=== PATIENT | female | born 1970 | race Caucasian/White ===

== ENCOUNTER 2016-09-18 08:51 | Day surgery (SDC) | payer MEDICARE, MEDICAID ==
[~2016-09-18] VITALS: Ht 165.1 cm; Wt 90.7 kg
[~2016-09-18 08:51] MED LIST: ALBU8.5H2 INHALATION; ALPR2TAB6 PO; ASPI-973 PO; ATOR20TA PO; BECL8.7A5 INHALATION; CARV3.122 PO; DULO30C PO; ERGO2000 PO; FLUT16SP NS; HYDR-656 PO; INSU100C2 SQ; Lactated Ringer's 1,000 ML IV ONE
[2016-09-18] MEDS ORDERED: fentaNYL-PF 50 mCg/mL 2 mL Inj ONE (08:52)
[2016-09-18] MEDS ORDERED: Propofol 10,000 mCg/mL 20 mL Inj ONE (08:52)
[2016-09-18 09:08] VITALS: BP 104/72; PULSE 93; RESP 16; O2SAT 97
--- NOTE | 2016-09-18 10:44 | PCM.ENDEGD ---
EGD Date of Service: Sep 18, 2016 Physician Farrukh Thomason MD Pre Procedure Diagnosis: Abdominal pain diarrhea Post Procedure Dx & Findings: Gastritis Procedure Esophagogastroduodenoscopy PROCEDURE IN DETAIL: After proper sedation, Olympus video endoscope was inserted into patient's mouth and esophagus was successfully intubated. Scope introduced esophagus. Esophagus showed normal shiny whitish mucosa consistent with squamous cell component. Z line was intact at 40 cm from the incisors. Scope further advanced to the stomach. Stomach revealed atrophy streaks of redness edema consistent with gastritis in the antrum and part of the body. Biopsies obtained.. Cardia fundus body antrum pylorus were all visualized. Retroflexion was done. Stomach was easily inflated and deflatable using air. Scope further advanced to the distal duodenum. Duodenum revealed normal villous structures with normal appearing folds without any mass ulcer erosion. 5 biopsies obtained for workup of diarrhea. Impression Gastritis Recommendation Await biopsies Follow-up with GI Presedation Assessment Risks and Benefits Informed consent was obtained from the patient after all risks and benefits including but not limited to drug reaction, infection, pain, bleeding, perforation, as well as alternatives were discussed. Patient monitoring Continuous pulse oximetry, cardiac monitoring, blood pressure monitoring, IV access, and oxygen at 2L per nasal cannula. Complications There were no periprocedural complications identified. Post Procedure Plan Post Procedure Recommendations 1. Restrict activities today. 2. Resume normal activities in the morning. 3. Resume medications. 4. GERD behavioral modification: - Avoid fatty, acidic, spicy, large meals - Do not lie down after meals - Do not eat or drink anything for at least 2 1/2 hours before going to bed at night - Discontinue tobacco and alcohol - Decrease or avoid caffeine - Avoid chocolate and mints - Decrease weight - Avoid aspirin and non steroidal anti-inflammatory agents (NSAID) such as Aleve, Advil, Mobic, Naproxen, Ibuprofen, etc 5. Add proton pump inhibitor. Take 30 minutes before 1st meal of the day. 6. Patient informed of normal post procedure side effects as bloating, drowsiness, blood streaking in the stool 7. If gastric biopsy reveal H.pylori, continue with appropriate treatment 8. If small bowel biopsy reveals celiac, continue with appropriate treatment 9. Please don't hesitate to call me with any questions Farrukh Thomason MD Sep 18, 2016 10:44
--- NOTE | 2016-09-18 10:47 | PCM.ENDCOL ---
Colonoscopy Date of Service: Sep 18, 2016 Physician Farrukh Thomason MD Pre Procedure Diagnosis: Diarrhea Post Procedure Dx & Findings: Polyp hemorrhoids diverticuli Procedure Colonoscopy PROCEDURE IN DETAIL: Prep adequate Withdrawal time 18 minutes After unremarkable rectal examination the Olympus video colonoscope was inserted patient's anal canal and was advanced to cecum. Landmarks were identified including the ileocecal valve and appendiceal orifice. Scope further there are events the terminal ileum. Which showed normal villous structures without any ulcer mass or lesions. Scope was withdrawn systematically. Visualized colonic mucosa showed healthy shiny mucosa with normal healthy-appearing vasculature. In the cecum, there was a 3-4 mm polyp which was removed completely using cold snare. In the ascending colon there was a 1-2 mm polyp was withdrawn completely using cold snare. In the transverse colon, there was a 2 mm polyp which was removed completely using cold snare. In the rectum, there was a 1 cm polyp which was removed completely using hot snare. Random biopsies are taken for workup of diarrhea from the cecum to the rectum. Patient has several diverticula in the sigmoid colon. In the rectum retroflexion was done which showed hemorrhoids. Anal canal was inspected carefully on the way out and hemorrhoids noted. Impression Polyp 4 status post complete removal. Polyp in the rectum was 1 cm in size. Diverticula Terminal ileum normal Hemorrhoids Recommendation Repeat colonoscopy 3 years Diverticular diet Presedation Assessment Risks and Benefits Informed consent was obtained from the patient after all risks and benefits including but not limited to drug reaction, infection, pain, bleeding, perforation, as well as alternatives were discussed. Patient monitoring Continuous pulse oximetry, cardiac monitoring, blood pressure monitoring, IV access, and oxygen at 2L per nasal cannula. Complications There were no periprocedural complications identified. Post Procedure Plan Post Procedure Recommendations 1. Restrict activities today. 2. Resume normal activities in the morning. 3. Resume medications. 4. Patient informed of normal post procedure side effects as bloating, drowsiness, blood streaking in the stool. 5. average risk CRCS. If colon polyps come back as: -Hyperplastic- can repeat colonoscopy in 10 years -Tubular adenoma- repeat colonoscopy in 5 years -Tubulovillous/villous adenoma- repeat colonoscopy in 3 years -If any dysplasia- return to clinic as soon as possible 6. Please don't hesitate to call me with any questions. Farrukh Thomason MD Sep 18, 2016 10:47
[2016-09-18 10:49] VITALS: BP 93/68; PULSE 84; RESP 16; O2SAT 97
[2016-09-18 10:59] VITALS: BP 94/62; PULSE 82; RESP 16; O2SAT 96
[2016-09-18 11:03] VITALS: BP 94/69; PULSE 79; RESP 16; O2SAT 98
--- NOTE | 2016-09-18 17:52 | PCM.HPANE ---
Patient Data Date of Service: Sep 18, 2016 (0700) Surgeon Admitting Provider: Attending Provider:Farrukh Thomason MD Primary Care Physician:Gabby Gatica PA-C Other Provider:Andrea Sullivan Anesthesia Reason for Visit Abdominal Pain Of Unknow Cause Ht/WT & BMI Height (Feet): 5 Height (Inches): 5 Weight (Kilograms): 90.72 Body Mass Index 33.00 Allergies Coded Allergies: codeine (Verified Allergy, Severe, 01/09/10) Adhesives (Verified Allergy, Intermediate, 01/09/10) metformin (Verified Allergy, Mild, DIARRHEA, 09/17/16) morphine (Verified Allergy, Unknown, 09/17/16) Past Anesthesia History Anesthesia History: Denies:: Anesthesia Reactions, Fam Anesthesia Reaction, Fam Malignant Hypertherm, Malignant Hyperthermia Diabetes History Hx Diabetes?: Yes MRSA MRSA: No Medications Blood Thinner: Aspirin Home Meds Incl Beta Hiren: Yes Date Beta Hiren Taken: Sep 17, 2016 Reported Medications Beclomethasone Dipropionate (Qvar)8.7 Gm Aer.w.adap2 Puff INHALATION BID #8.7 GM 09/17/16 Albuterol HFA (Proair HFA)8.5 Gm Hfa.aer.ad2 Puffs INHALATION Q4H PRN For Wheezing #1 INHALER 09/17/16 hydrOXYzine Hcl (HydrOXYzine Hcl)25 Mg Vxhxbx43 Mg PO HS PRN For Itching Ref 0 09/17/16 Fluticasone Propionate (Fluticasone Propionate Nasal)16 Gm [place].susp2 [place] NS DAILY #16 GM Ref 0 09/17/16 Ergocalciferol (Vitamin D2) (Vitamin D2)2,000 Unit Qhqvsj47,000 Unit PO WEEKLY 09/17/16 Carvedilol 3.125 Mg Tablet3.125 Mg PO BID Ref 0 09/17/16 Atorvastatin (Lipitor)20 Mg Ikspue59 Mg PO DAILY Ref 0 09/17/16 Aspirin 81 Mg Sczjew45 Mg PO DAILY Ref 0 09/17/16 Alprazolam 2 Mg Tablet2 Mg PO BID PRN For Anxiety Ref 0 09/17/16 Insulin Glargine-Expunged Drug, Do Not Renew! (Lantus-Expunged Drug, Do Not Renew!)100 U/Ml Fzqtrkdrv28 U Sq Hs 01/10/10 Discontinued Reported Medications Duloxetine-Expunged Drug, Do Not Renew! (Cymbalta-Expunged Drug, Do Not Renew!) 30 Mg Capsule.dr80 Mg PO DAILY Please take your Cymbalta (Duloxetine) 30mgm orally nightly at bedtime. 02/02/10 Omeprazole-Expunged Drug, Do Not Renew! 20 Mg Tablet.dr20 Mg PO Please take your Prilosec (Omeprazole) 20mgm orally nightly at bedtime. 02/02/10 Propranolol-Expunged Drug, Do Not Renew! 10 Mg Tab10 Mg QID PRN Please take your Inderal (Propranolol) orally up to four (4) times a day as needed to treat your anxiety. 02/02/10 Sumatriptan-Expunged Drug, Do Not Renew! (Imitrex-Expunged Drug, Do Not Renew!) 100 Mg Chq842 Mg PO DAILY PRN take as needed for migraine headaches 01/10/10 History History of ENT Problems?: No HEENT History: Positive for:: Dysphagia Denies:: Abnormal Airway Cataracts Difficult Intubation Glaucoma Hearing Problem Sinus Problem TMJ Denture Type: None Teeth Condition: Within Normal Limits Hx of Heart Problems?: Yes Cardiovascular History: Denies:: AICD Abdominal Aortic Aneurism Atrial Fibrillation Cardiac Surgery Chest Pain Congestive Heart Failure Coronary Artery Disease Edema Heart Murmur Hypertension Irregular Heartbeat Pacemaker Peripheral Vascular Rheumatic Fever Thrombophlebitis Valvular Heart Disease Other Cardiac History: CHF, CARDIOMYOPAHY, TACHARDIA Hx of Respiratory Problem?: Yes Respiratory History: Positive for:: Asthma COPD Cough Denies:: Chest Surgery Dyspnea Emphysema Hemoptysis Pneumonia Tuberculosis Hx Neurologic Problems?: Yes Neurological History: Positive for:: CVA (TIA 2012) Headaches (migraine) Denies:: Alzheimer's Disease Dementia Dizziness Parkinson's Disease Seizures Hx of GI Problems?: Yes Hx of Problems?: No Female Hx: Denies:: Currently (TUBAL) Endometriosis Pelvic Inflammatory Problems with Breasts? Hx Musculoskeletal Problems?: No Musculoskeletal History: Positive for:: Fibromyalgia Hx of Psycho/Social Problems?: Yes Psycho Social History: Positive for:: Anxiety Hx Depression Suicide Attempt Denies:: Bipolar Disorder Hx Surgeries?: Yes (KNEE, HYSTERECTOMY, APPY, MOUTH,NECK,NOSE) Hx Any Other Health Problems?: Yes Other History: Positive for:: Hospitalization Denies:: Cancer Endocrine Disease Thyroid Disease History Blood Transfusions: Denies:: Blood Transfuse Reaction Blood Transfusions Hx Diabetes: Yes Hx Alcohol Use: No (SOBER FOR 2 YEARS,LST MARIJUANA WAS 09/17)Hx Substance Use: Yes Stop/Bang Treated for Sleep Apnea?: Yes Do You Have a CPAP Machine?: No Risk Assessment Category Category 1A: Patient has history of documented sleep apnea, and HAS NOT received any narcotic, sedative or anesthesia administration during this stay. Category 1B: Patient has history of documented sleep apnea, and HAS received any narcotic , sedative or anesthesia administration during this stay Category 2: Patient has SUSPECTED Obstructive Sleep Apnea, and HAS received any narcotic , sedative or anesthesia administration during this stay. Category 3: Patient has SUSPECTED Obstructive Sleep Apnea and HAS NOT received narcotic, sedative or anesthesia administration during this stay. Category 4: Outpatient in Procedural Areas with known sleep apnea or who screen positive for High Risk via the STOP/BANG questionnaire. Exam Exam Vital Signs Vital Signs Date Time Temp Pulse Resp B/P Pulse Ox O2 Delivery O2 Flow Rate FiO2 09/18/16 11:03 79 16 94/69 98 Room Air 09/18/16 10:59 82 16 94/62 96 Room Air 09/18/16 10:49 84 16 93/68 97 Room Air General Appearance: Alert, Oriented X3, Cooperative, No Acute Distress HEENT/AIRWAY: MP 2 Lungs: Clear to Auscultation Heart: Exam Unremarkable Meds/Labs/Diagnostics Admission Meds Current Medications Lactated Ringer's (Lr) 1,000 ml @ 10 mls/hr Q24H ONCE IV Last administered on 09/18/16t 10:45; Start 09/18/16 at 06:00; Stop 09/19/16 at 05:59 Plan Impression Patient chart reviewed, patient interviewed and anesthestic plan with risks, benefits, and alternatives discussed, and informed consent obtained. ASA Physical Status: ASA2 Mod Systemic Disease Anesthetic Plan: MAC Bene/Risks/Altern/Consents: Yes HP Complete Prior to Induction: Yes Vince Barba MD Sep 18, 2016 17:52
--- NOTE | 2016-09-23 13:26 | PATH ---
SURGICAL PATHOLOGY Attending Physician:Farrukh Thomason M.D. CASE STATUS: Signed Out PATIENT NAME: JEREMI VALDEZ PID: [id number] : 1970 DATE COLLECTED:09/18/2016 16:22 SPECIMEN: 1: Duodenum, Biopsy 2: Gastric, Biopsy 3: Colon, Polyp 4: Colon, Biopsy 5: Colon, Polyp 6: Colon, Polyp 7: Rectum, Biopsy 8: Colon, Polyp CLINICAL HISTORY: 1). DUODENAL BIOPSY 2). GASTRIC BIOPSY 3). CECAL POLYP X1 4). RANDOM COLON 5). ASCENDING COLON POLYP X1 6). TRANSVERSE POLYP X1 7). RECTAL POLYP X1 8). SIGMOID POLYP X1 FINAL DIAGNOSIS: 1.DUODENUM, BIOPSY: DUODENAL MUCOSA WITH NO DIAGNOSTIC ABNORMALITY. Negative for active inflammation, features of sprue, dysplasia, and malignancy. 2.GASTRIC BIOPSY: ONE FRAGMENT OF VILLOUS ENTERIC MUCOSA, SEE COMMENT. DEEPER LEVELS EXAMINED. 3.CECAL POLYP, BIOPSY: TUBULAR ADENOMA. 4.RANDOM COLON, BIOPSY: COLONIC MUCOSA WITH TWO FRAGMENTS WITH PROMINENT LYMPHOID AGGREGATES. Negative for active, chronic, and microscopic colitis. Negative for dysplasia and malignancy. 5.ASCENDING COLON POLYP, BIOPSY: TUBULAR ADENOMA. 6.TRANSVERSE COLON POLYP, BIOPSY: TUBULAR ADENOMA. 7.RECTAL POLYP, BIOPSY: TUBULAR ADENOMA. 8.SIGMOID COLON POLYP, BIOPSY: TUBULAR ADENOMA. DEEPER LEVELS EXAMINED. ICD10: K64 GROSS DESCRIPTION: The specimen is received in eight formalin filled containers labeled with the patient's name. 1). The specimen is labeled "duodenal" and consists of a 0.3 x 0.2 x 0.2 CM portion of tissue which is entirely submitted in cassette 1A. 2). The specimen is labeled "gastric" and consists of a 0.2 x 0.2 x 0.2 CM portion of tissue which is entirely submitted in cassette 2A. 3). The specimen is labeled "cecal polyp" and consists of a 0.6 x 0.5 x 0.4 CM portion of tissue which is entirely submitted in cassette 3A. 4). The specimen is some labeled "random colon" and consists of multiple portions of tissue which aggregate to 0.5 x 0.5 x 0.3 CM. The specimen is entirely submitted in cassette 4A. 5). The specimen is labeled "ascending polyp" and consists of a 0.1 x 0.1 x 0.1 CM portion of tissue which is entirely submitted in cassette 5A. 6). The specimen is labeled "transverse polyp" and consists of 2 portions of tissue which aggregate to 0.1 x 0.1 x 0.1 CM. The specimen is entirely submitted in cassette 6A. 7). The specimen is labeled "rectal polyp" and consists of a 0.5 x 0.4 x 0.4 CM portion of tissue which is entirely submitted in cassette 7A. 8). The specimen is labeled "sigmoid polyp" and consists of a 0.2 x 0.2 x 0.2 CM portion of tissue which is entirely submitted in cassette 8A. 09/18/2016DC MICRO DESCRIPTION: 2. Part 2, desinated as gastric biopsy: One fragment of villous enteric mucosa comprising of delicate villous architecture with goblet cells and Paneth cells. No neutrophilic inflammation is identified. No gastric mucosa is identified on additional deeper levels examined. Endoscopic correlation is recommended to ascertain whether this biopsy is from the gastric mucosa versus the gastroduodenal junctional mucosa. If this truly represents a gastric biopsy, there is complete intestinal metaplasia. Negative for dysplasia and malignancy. As part of a routine quality assurance calibrator, Dr. Jovani Bhatt has also reviewed part 2 of this case and agrees with the interpretation. ICD-9 CODES: CPT CODES: 1: 12147 2: 60817 3: 16361 4: 69531 5: 83267 6: 69003 7: 80429 8: 20635 Electronically Signed Out Daniel Chavez MD [facility] Pathology [facility] [address], [place] [address] Technical component performed at [facility], [facility] [address], [place], [address]
== END 2016-09-18 23:59 | disposition home or self-care (01) ==
LOC: END 08:51
PROVIDERS: ATTEND Internal Medicine
DX: D12.0 Benign neoplasm of cecum (principal); D12.2 Benign neoplasm of ascending colon; D12.3 Benign neoplasm of transverse colon; D12.5 Benign neoplasm of sigmoid colon; D12.8 Benign neoplasm of rectum; K57.30 Diverticulosis of large intestine without perforation or abscess without bleeding; K64.8 Other hemorrhoids; K29.70 Gastritis, unspecified, without bleeding; F41.9 Anxiety disorder, unspecified; E78.00 Pure hypercholesterolemia, unspecified; F32.9 Major depressive disorder, single episode, unspecified; F43.10 Post-traumatic stress disorder, unspecified; M79.7 Fibromyalgia; G47.30 Sleep apnea, unspecified; G89.4 Chronic pain syndrome; I50.9 Heart failure, unspecified; I42.9 Cardiomyopathy, unspecified; F17.210 Nicotine dependence, cigarettes, uncomplicated; F12.90 Cannabis use, unspecified, uncomplicated; Z79.82 Long term (current) use of aspirin; Z79.4 Long term (current) use of insulin; Z79.51 Long term (current) use of inhaled steroids
CPT/HCPCS: 43239; 45380; 45385; J2250; J3010; J7120